=== PATIENT | female | born 1975 | race Caucasian/White ===

== ENCOUNTER 2021-02-16 20:35 | Emergency (ER) | payer OTHER ==
[~2021-02-16] VITALS: Ht 177.8 cm; Wt 69.0 kg
--- NOTE | 2021-02-16 21:16 | PHYS DOC ---
General Adult EDM: Chief Complaint: ANKLE PROBLEM HPI: HPI: ".. I stepped off a bail of straw.. and inverted this Lt ankle... Patient is a 45 year old female who presents with left ankle and foot injury. Time of injury was approximately 1900 hrs. Distal neuro vascular is equal to right foot. Does have obvious swelling of foot and left ankle. Patient has some pain with foot squeeze. There is pain also with palpation of calcaneus and Achilles tendon. Marked pain on palpation of lateral malleolus. Does have obvious laxity on anterior draw. No upper leg tenderness. No other injury noted. Has injured this ankle in the past. Patient normally follows at [place] for care. No recent travel. No specific ill contacts. Has not received Covid vaccination. Review of Systems: Review of Systems: Constitutional: Denies fever or chills Eyes: Denies change in visual acuity HENT: Denies nasal congestion or sore throat Respiratory: Denies cough or shortness of breath Cardiovascular: Denies chest pain or edema GI: Denies abdominal pain, nausea, vomiting, bloody stools or diarrhea : Denies dysuria Musculoskeletal: Complains of severe left ankle and foot pain Integument: Denies rash Neurologic: Denies headache, focal weakness or sensory changes Endocrine: Denies polyuria or polydipsia Lymphatic: Denies swollen glands Psychiatric: Denies depression or anxiety Family History: Family History: Noncontributory to presentation Current Medications: Current Meds: See nursing for home meds Allergies: Allergies: Allergies Uncoded Allergies Type Severity Reaction Last Updated Verified PENICILLIN Allergy Unknown 02/16/21 Physical Exam: PE: Constitutional: Well developed, well nourished, marked acute distress, non-toxic appearance. [] HENT: Normocephalic, atraumatic, bilateral external ears normal, oropharynx moist, no oral exudates, nose normal. [] Eyes: PERRLA, EOMI, conjunctiva normal, no discharge. [] Neck: Normal range of motion, no tenderness, supple, no stridor. [] Cardiovascular:Heart rate regular rhythm, no murmur [] Lungs & Thorax: Bilateral breath sounds equal apex auscultation [] Abdomen: Bowel sounds normal, soft, no tenderness, no masses, no pulsatile masses. [] Skin: Warm, dry, no erythema, no rash. [] Back: No tenderness, no CVA tenderness. [] Extremities: No tenderness, no cyanosis, no clubbing, ROM intact, no edema. Except the findings in left ankle and foot as per HPI Neurologic: Alert and oriented X 3, normal motor function, normal sensory function, no focal deficits noted. [] Psychologic: Affect anxious, judgement normal, mood normal. [] EKG: EKG: [] Radiology/Procedures: Radiology/Procedures: [][place] [address] IMAGING REPORT Signed PATIENT: JAMES NEWTON ACCOUNT: [id number] : 1975 LOCATION: ER AGE: 45 SEX: F EXAM STATUS: REG ER ORD. PHYSICIAN: NELA AGEE MD REASON: fall PROCEDURE: FOOT LEFT 3V Left foot 3 views, left ankle 3 views. HISTORY: Fall Left foot 3 views were taken the left foot. There is not evidence of an acute fracture or osseous abnormality. Left ankle 3 views were taken the left ankle. There is not evidence of an acute fracture or osseous abnormality. IMPRESSION: 1. No acute fracture left foot. 2. No acute fracture left ankle. Electronically signed by: Luis Nava MD (02/16/2021 10:21 PM) [facility] DICTATED AND SIGNED BY: LUIS NAVA MD DATE: 02/16/212218 CC: NELA AGEE MD; MAHESH BARAHONA APRN ~MTH0 0 Heart Score: C/O Chest Pain: N/A Risk Factors: Risk Factors: DM, Current or recent (<one month) smoker, HTN, HLP, family history of CAD, obesity. Risk Scores: Score 0 - 3: 2.5% MACE over next 6 weeks - Discharge Home Score 4 - 6: 20.3% MACE over next 6 weeks - Admit for Clinical Observation Score 7 - 10: 72.7% MACE over next 6 weeks - Early Invasive Strategies Course & Med Decision Making: Course & Med Decision Making Pertinent Labs and Imaging studies reviewed. (See chart for details) Patient keep left foot and ankle elevated. Use crutches. Wear splint. Follow- up with orthopedics at [place] or at [facility]. Take Tylenol and ibuprofen for pain. For marked pain may take Vicoprofen. Consider repeat x- ray in 2 weeks if no improvement at all. For possible missed fracture. Distal neurovascular intact after application of splint. Impression: 1. Left ankle and foot sprain [] Dragon Disclaimer: Dragon Disclaimer: This electronic medical record was generated, in whole or in part, using a voice recognition dictation system. Departure Departure: Referrals: NON,STAFF (PCP) Scripts Hydrocodone/Ibuprofen (HYDROCODONE-IBUPROFEN 7.5-200 ) 1 Each Tablet 1 TAB PO PRN Q6HRS PRN for PAIN, #30 TAB 0 Refills Prov: NELA AGEE MD 02/16/21 Dragon Disclaimer This chart was dictated in whole or in part using Voice Recognition software in a busy, high-work load, and often noisy Emergency Department environment. It may contain unintended and wholly unrecognized errors or omissions. Dragon Disclaimer This chart was dictated in whole or in part using Voice Recognition software in a busy, high-work load, and often noisy Emergency Department environment. It may contain unintended and wholly unrecognized errors or omissions. NELA AGEE MD Feb 16, 2021 21:16
[2021-02-16 21:17] VITALS: BP 109/69
[2021-02-16] MEDS ORDERED: oxyCODONE/APAP 5/325 1 TAB TABLET PO ONE (22:00)
[2021-02-16] MEDS ORDERED: HYDR-1179 PO ×2 (22:09→22:13)
--- NOTE | 2021-02-16 22:23 | RAD ---
Left foot 3 views, left ankle 3 views. HISTORY: Fall Left foot 3 views were taken the left foot. There is not evidence of an acute fracture or osseous abnormality. Left ankle 3 views were taken the left ankle. There is not evidence of an acute fracture or osseous abnormality. IMPRESSION: 1. No acute fracture left foot. 2. No acute fracture left ankle. Electronically signed by: Luis Nava MD (02/16/2021 10:21 PM) [facility]
== END 2021-02-16 21:37 | disposition home or self-care (01) ==
LOC: ER 20:35
DX: S93.402A Sprain of unspecified ligament of left ankle, initial encounter (principal); X58.XXXA Exposure to other specified factors, initial encounter; Y93.89 Activity, other specified; Y92.89 Other specified places as the place of occurrence of the external cause; Y99.8 Other external cause status
CPT/HCPCS: 29515; 73610; 73630; 99284